=== PATIENT | male | born 1975 | race Two or more races ===

== ENCOUNTER 2023-06-04 13:19 | Emergency (ER) | payer OTHER ==
[~2023-06-04] VITALS: Ht 185.4 cm; Wt 104.3 kg
[2023-06-04] MEDS ORDERED: ATORVASTATIN CA20 MG PO (14:21)
[2023-06-04] MEDS ORDERED: ZETIA10 MG (14:22)
[2023-06-04 15:32] LABS: HEMOGLOBIN 13.5 g/dL (13-16.00); MEAN CELL VOLUME 86.8 fL (80.0-100.00); MEAN CORPUSCULAR HEMOGLOBIN 29.2 pg (27.00-32.0); MEAN CORPUSCULAR HGB CONC 33.7 g/dl (32.0-36.0); PLATELET COUNT 262 K/uL (150-450); RED BLOOD COUNT 4.61 M/uL (4.00-6.00); RED CELL DISTRIBUTION WIDTH 14.1 % (11.5-14.5)
[2023-06-04 15:46] LABS: PH,URINE 5.5 (5.0-8.0); URINE APPEARANCE Clear; URINE BACTERIA 23.9 uL (0.0-1933); URINE BILIRRUBIN Negative (NEGATIVE); URINE BLOOD Negative; URINE COLOR Yellow; URINE GLUCOSE Negative (NEGATIVE); URINE LEUKOCYTE Negative; URINE NITRATE Negative; URINE PROTEIN Negative (NEGATIVE); URINE RBC 12.5 uL (0.0-20.8); URINE UROBILINOGEN 0.2 E.U./dl; URINE WBC 2.1 uL (0.0-23.2)
[2023-06-04 15:53] LABS: CALCIUM 9.6 mg/dL (8.5-10.1); CREATININE SERUM 1.11 mg/dL (0.70-1.30); GFR 70.41; POTASSIUM 3.76 mEq/L (3.5-5.1)
[2023-06-04 16:03] LABS: URINE EPITHELIAL CELLS 0.7 uL (0.0-38.8)
[2023-06-04] MEDS ORDERED: CIPROFLOXACIN IN 5 % DEXTROSE 400 MG/200 ML PIGGYBAG IV STA (16:37)
[2023-06-04] MEDS ORDERED: METRONIDAZOLE/SODIUM CHLORIDE 500 MG/100 ML PIGGYBACK IV STA (16:38)
== END 2023-06-04 19:12 | disposition home or self-care (01) ==
LOC: ER 13:19
PROVIDERS: General Practice
DX: R10.32 Left lower quadrant pain (principal); K57.32 Diverticulitis of large intestine without perforation or abscess without bleeding; E78.00 Pure hypercholesterolemia, unspecified